=== PATIENT | female | born 1940 | race Caucasian/White ===

== ENCOUNTER 2019-02-28 21:44 | Inpatient (IN) | payer MEDICARE, OTHER ==
[~2019-02-28] VITALS: Ht 162.6 cm; Wt 70.5 kg
--- NOTE | 2019-02-28 21:59 | NUR ---
DURING TRANSPORTATION FROM [place] TO [facility], PT HAD HR IN TH 30's. PT WAS GIVEN ATROPINE, HEART RATE ROME TO THE 60's. 25 mcg FENTANYL AND 4 MG ZOFRAN ADMINISTERED AT [facility].
[2019-02-28] MEDS ORDERED: NO HOME MEDS (22:21)
[2019-02-28] MEDS ORDERED: magnesium hydroxide 30ml (MOM) UD suspension PO PRN (22:30)
[2019-02-28] MEDS ORDERED: magnesium Cl slow-release 64mg tablet PO PRN (22:30)
[2019-02-28] MEDS ORDERED: morphine 2 MG/ML inj. syringe IV PRN (22:30)
[2019-02-28] MEDS ORDERED: potassium CL 10mEq/100ml bag 100 ML IV PRN ×2 (22:30)
[2019-02-28] MEDS ORDERED: mag hydrox/Alum hydrox/simeth 30ml oral suspension PO PRN (22:30)
[2019-02-28] MEDS ORDERED: magnesium 2GM in 50ml NS 50 ML IV PRN (22:30)
[2019-02-28] MEDS ORDERED: potassium Cl 20 mEq SR tablet PO PRN (22:30)
[2019-02-28] MEDS ORDERED: magnesium 4gm in 100ml NS 100 ML IV PRN (22:30)
[2019-02-28] MEDS ORDERED: HYDROcodone/acetaminophen 5mg/325mg tablet PO PRN (22:30)
[2019-02-28] MEDS ORDERED: acetaminophen 325mg tablet PO PRN ×2 (22:30)
[2019-02-28] MEDS ORDERED: ondansetron/PF 4mg/2ml inj IV PRN (22:30)
[2019-02-28] MEDS: normal saline 1000ml 1,000 ML IV SCH (22:46)
[2019-02-28 22:57] LABS: BASOPHILS # (AUTO) 0.1 X10'3 (0-0.2); BASOPHILS % (AUTO) 0.7 % (0-1); EOSINOPHILS % (AUTO) 0.2 % (0-6); HEMATOCRIT 43.2 % (35.0-45.0); HEMOGLOBIN 14.5 g/dl (12.0-16.0); LYMPHOCYTES # (AUTO) 0.8 X10'3 (1.1-4.8); LYMPHOCYTES % (AUTO) 7.8 % (21-51); MEAN CORPUSCULAR HEMOGLOBIN 31.2 PG (27.0-31.0); MEAN CORPUSCULAR HGB CONC 33.6 g/dL (33.0-36.5); MEAN CORPUSCULAR VOLUME 92.9 FL (78-98); MEAN PLATELET VOLUME 7.8 FL (7.4-10.4); MONOCYTES # (AUTO) 0.7 X10'3 (0-0.9); MONOCYTES % (AUTO) 6.9 % (2-12); NEUTROPHILS # (AUTO) 8.4 X10'3 (1.8-7.7); NEUTROPHILS % (AUTO) 84.4 % (42-75); PLATELET COUNT 205 X10'3 (140-440); RED BLOOD COUNT 4.64 X10'6 (4.20-5.60); RED CELL DISTRIBUTION WIDTH 14.1 % (11.5-14.5); WHITE BLOOD COUNT 9.9 X10'3 (4.5-11.0)
--- NOTE | 2019-02-28 22:57 | NUR ---
Patient's son Chris Andrews cld for update, per patient ok to talk with him. I advised him she was stable and resting comfortably at this time.
[2019-02-28 23:20] LABS: ALANINE AMINOTRANSFERASE 615 U/L (12-78); ALBUMIN 3.6 G/DL (3.4-5.0); ALBUMIN/GLOBULIN RATIO 1.1 (1.1-1.5); ALKALINE PHOSPHATASE 164 IU/L (46-116); ANION GAP 6 (8-16); ASPARTATE AMINO TRANSFERASE 1063 U/L (10-37); BILIRUBIN,TOTAL 2.3 MG/DL (0.1-1.0); BLOOD UREA NITROGEN 13 MG/DL (7-18); BUN/CREATININE RATIO 16.5 (6.6-38.0); CALCIUM 9.1 MG/DL (8.5-10.1); CHLORIDE 106 MMOL/L (99-107); CHOL/HDL RATIO 2.6 (0.00-4.99); CHOLESTEROL 167 MG/DL (0-200); CREATININE 0.79 MG/DL (0.40-0.90); GLUCOSE 117 MG/DL (70-104); HDL CHOLESTEROL 64 MG/DL (35-60); LDL CHOLESTEROL 87 MG/DL (50-100); POTASSIUM 3.9 MMOL/L (3.5-5.1); SODIUM 142 MMOL/L (135-145); TOTAL CARBON DIOXIDE 29.7 MMOL/L (24-32); TOTAL PROTEIN 6.8 G/DL (6.4-8.2); TRIGLYCERIDES 51 MG/DL (20-135); eGFR 70 ML/MIN
--- NOTE | 2019-02-28 23:59 | NUR ---
Report received from [employer] Shweta. Patient followed up shortly via josselyn. A&Ox4 and in no distress at this time. Patient up ad viridiana to bed and VS taken.
[2019-03-01 00:05] VITALS: BP 132/84
[2019-03-01 05:15] LABS: BASOPHILS % (AUTO) 0.6 % (0-1); EOSINOPHILS # (AUTO) 0.1 X10'3 (0-0.9); EOSINOPHILS % (AUTO) 0.7 % (0-6); HEMATOCRIT 37.4 % (35.0-45.0); HEMOGLOBIN 12.6 g/dl (12.0-16.0); LYMPHOCYTES # (AUTO) 0.8 X10'3 (1.1-4.8); LYMPHOCYTES % (AUTO) 10.3 % (21-51); MEAN CORPUSCULAR HEMOGLOBIN 31.1 PG (27.0-31.0); MEAN CORPUSCULAR HGB CONC 33.6 g/dL (33.0-36.5); MEAN CORPUSCULAR VOLUME 92.5 FL (78-98); MEAN PLATELET VOLUME 8.3 FL (7.4-10.4); MONOCYTES # (AUTO) 0.6 X10'3 (0-0.9); MONOCYTES % (AUTO) 8.2 % (2-12); NEUTROPHILS # (AUTO) 6.2 X10'3 (1.8-7.7); NEUTROPHILS % (AUTO) 80.2 % (42-75); PLATELET COUNT 157 X10'3 (140-440); RED BLOOD COUNT 4.04 X10'6 (4.20-5.60); RED CELL DISTRIBUTION WIDTH 13.8 % (11.5-14.5); WHITE BLOOD COUNT 7.7 X10'3 (4.5-11.0)
[2019-03-01 05:20] LABS: PARTIAL THROMBOPLASTIN TIME 29 SECONDS (22-32)
[2019-03-01 05:34] LABS: ALANINE AMINOTRANSFERASE 507 U/L (12-78); ALBUMIN 2.7 G/DL (3.4-5.0); ALKALINE PHOSPHATASE 147 IU/L (46-116); ANION GAP 8 (8-16); ASPARTATE AMINO TRANSFERASE 601 U/L (10-37); BILIRUBIN,TOTAL 2.4 MG/DL (0.1-1.0); BLOOD UREA NITROGEN 12 MG/DL (7-18); BUN/CREATININE RATIO 16.9 (6.6-38.0); CALCIUM 8.4 MG/DL (8.5-10.1); CHLORIDE 107 MMOL/L (99-107); CREATININE 0.71 MG/DL (0.40-0.90); GLUCOSE 107 MG/DL (70-104); MAGNESIUM 1.8 MG/DL (1.5-2.4); POTASSIUM 3.6 MMOL/L (3.5-5.1); SODIUM 142 MMOL/L (135-145); TOTAL CARBON DIOXIDE 26.8 MMOL/L (24-32); TOTAL PROTEIN 5.4 G/DL (6.4-8.2); eGFR 79 ML/MIN
[2019-03-01 05:53] LABS: LIPASE 3827 U/L (73-393)
[2019-03-01] MEDS: K and/or MAG REPLACEMENT MC SCH (06:51)
--- NOTE | 2019-03-01 06:51 | NUR ---
Problems reprioritized. Patient report given, questions answered & plan of care reviewed with Dieter Croft.
[2019-03-01] MEDS: enoxaparin 40mg/0.4ml syringe SQ SCH (08:19)
[2019-03-01] MEDS: normal saline 1000ml 1,000 ML IV SCH ×3 (08:20→20:22)
[2019-03-01] MEDS ORDERED: sincalide inj 1.4 MCG in normal saline 50ml IV soln 50 ML IV ONE (10:00)
--- NOTE | 2019-03-01 10:15 | NUR ---
Angelique Sibley, at bedside to take patient to MRI at this time.
[2019-03-01] MEDS: salt irrigation nasal spray 45 ML SPRAY NS PRN ×2 (12:28→16:39)
[2019-03-01 18:00] VITALS: BP 100/58
--- NOTE | 2019-03-01 19:27 | NUR ---
Patient in room [facility]. I have received report from Marcos MATAMOROS and had the opportunity to ask questions and assume patient care. patient is resting.
[2019-03-02] VITALS: BP 107/55
[2019-03-02] MEDS: morphine 2 MG/ML inj. syringe IV PRN (01:06)
[2019-03-02] MEDS: normal saline 1000ml 1,000 ML IV SCH ×4 (04:17→14:17)
--- NOTE | 2019-03-02 06:21 | NUR ---
Problems reprioritized. Patient report given, questions answered & plan of care reviewed with Aman RN.Patient is sleeping and shows no aparent distress
--- NOTE | 2019-03-02 06:40 | NUR ---
Patient in room [facility]. I have received report from SHILOH Card and had the opportunity to ask questions and assume patient care.
[2019-03-02 07:01] LABS: BASOPHILS % (AUTO) 0.5 % (0-1); EOSINOPHILS # (AUTO) 0.1 X10'3 (0-0.9); EOSINOPHILS % (AUTO) 0.6 % (0-6); HEMATOCRIT 35.2 % (35.0-45.0); HEMOGLOBIN 11.8 g/dl (12.0-16.0); LYMPHOCYTES # (AUTO) 0.9 X10'3 (1.1-4.8); LYMPHOCYTES % (AUTO) 9.4 % (21-51); MEAN CORPUSCULAR HEMOGLOBIN 31.4 PG (27.0-31.0); MEAN CORPUSCULAR HGB CONC 33.6 g/dL (33.0-36.5); MEAN CORPUSCULAR VOLUME 93.6 FL (78-98); MEAN PLATELET VOLUME 8.3 FL (7.4-10.4); MONOCYTES # (AUTO) 0.7 X10'3 (0-0.9); MONOCYTES % (AUTO) 7.5 % (2-12); PLATELET COUNT 146 X10'3 (140-440); RED BLOOD COUNT 3.76 X10'6 (4.20-5.60); WHITE BLOOD COUNT 9.7 X10'3 (4.5-11.0)
[2019-03-02 07:13] LABS: ALBUMIN 2.3 G/DL (3.4-5.0); ANION GAP 13 (8-16); BLOOD UREA NITROGEN 13 MG/DL (7-18); CHLORIDE 108 MMOL/L (99-107); CREATININE 0.62 MG/DL (0.40-0.90); GLUCOSE 62 MG/DL (70-104); MAGNESIUM 1.6 MG/DL (1.5-2.4); POTASSIUM 3.3 MMOL/L (3.5-5.1); SODIUM 141 MMOL/L (135-145); TOTAL CARBON DIOXIDE 19.8 MMOL/L (24-32); eGFR > 90 ML/MIN
[2019-03-02] MEDS: enoxaparin 40mg/0.4ml syringe SQ SCH (07:57)
[2019-03-02 08:00] VITALS: BP 119/56
[2019-03-02] MEDS: K and/or MAG REPLACEMENT MC SCH (08:07)
[2019-03-02 08:54] LABS: ALANINE AMINOTRANSFERASE 261 U/L (12-78); ALBUMIN/GLOBULIN RATIO 0.8 (1.1-1.5); ALKALINE PHOSPHATASE 127 IU/L (46-116); ASPARTATE AMINO TRANSFERASE 142 U/L (10-37); BILIRUBIN,DIRECT 0.4 MG/DL (0-0.3); BILIRUBIN,TOTAL 1.1 MG/DL (0.1-1.0); LIPASE 132 U/L (73-393); TOTAL PROTEIN 5.1 G/DL (6.4-8.2)
[2019-03-02] MEDS ORDERED: sincalide inj 1.4 MCG in normal saline 50ml IV soln 50 ML IV ONE (10:00)
[2019-03-02 11:00] VITALS: BP 122/56
[2019-03-02] MEDS: piperacillin/tazo 3.375gm/50ml 50 ML IV SCH ×2 (11:34→16:06)
[2019-03-02] MEDS: potassium Cl 20 mEq SR tablet PO PRN ×2 (15:09→19:14)
[2019-03-02 18:00] VITALS: BP 121/47
--- NOTE | 2019-03-02 18:14 | NUR ---
Problems reprioritized. Patient report given, questions answered & plan of care reviewed with SHILOH Sutton.
[2019-03-02] MEDS: lactobacillus rhamnosus 10,000 MMU CELLS/CAPSULE PO SCH (20:00)
[2019-03-02 23:55] VITALS: BP 120/49
[2019-03-03] MEDS: piperacillin/tazo 3.375gm/50ml 50 ML IV SCH ×3 (00:34→09:00)
[2019-03-03] MEDS: morphine 2 MG/ML inj. syringe IV PRN (01:13)
[2019-03-03 04:26] LABS: BASOPHILS % (AUTO) 0.7 % (0-1); EOSINOPHILS # (AUTO) 0.2 X10'3 (0-0.9); HEMOGLOBIN 13.1 g/dl (12.0-16.0); LYMPHOCYTES # (AUTO) 1.6 X10'3 (1.1-4.8); LYMPHOCYTES % (AUTO) 23.4 % (21-51); MEAN CORPUSCULAR HEMOGLOBIN 31.2 PG (27.0-31.0); MEAN CORPUSCULAR HGB CONC 33.6 g/dL (33.0-36.5); MEAN CORPUSCULAR VOLUME 92.7 FL (78-98); MEAN PLATELET VOLUME 8.2 FL (7.4-10.4); MONOCYTES # (AUTO) 0.6 X10'3 (0-0.9); MONOCYTES % (AUTO) 9.6 % (2-12); NEUTROPHILS # (AUTO) 4.2 X10'3 (1.8-7.7); NEUTROPHILS % (AUTO) 63.3 % (42-75); PLATELET COUNT 196 X10'3 (140-440); RED BLOOD COUNT 4.21 X10'6 (4.20-5.60); RED CELL DISTRIBUTION WIDTH 13.9 % (11.5-14.5); WHITE BLOOD COUNT 6.6 X10'3 (4.5-11.0)
[2019-03-03 04:33] LABS: ALANINE AMINOTRANSFERASE 204 U/L (12-78); ALBUMIN 2.6 G/DL (3.4-5.0); ALBUMIN/GLOBULIN RATIO 0.8 (1.1-1.5); ALKALINE PHOSPHATASE 134 IU/L (46-116); ANION GAP 9 (8-16); ASPARTATE AMINO TRANSFERASE 66 U/L (10-37); BILIRUBIN,TOTAL 0.9 MG/DL (0.1-1.0); BLOOD UREA NITROGEN 12 MG/DL (7-18); CALCIUM 8.5 MG/DL (8.5-10.1); CHLORIDE 108 MMOL/L (99-107); GLUCOSE 82 MG/DL (70-104); MAGNESIUM 1.8 MG/DL (1.5-2.4); SODIUM 141 MMOL/L (135-145); TOTAL CARBON DIOXIDE 24.1 MMOL/L (24-32); TOTAL PROTEIN 5.8 G/DL (6.4-8.2); eGFR 69 ML/MIN
--- NOTE | 2019-03-03 07:04 | NUR ---
Patient in room [facility] 344. I have received report from SHILOH Garrison and had the opportunity to ask questions and assume patient care.
[2019-03-03 07:13] VITALS: BP 129/71
[2019-03-03] MEDS: K and/or MAG REPLACEMENT MC SCH (08:00)
[2019-03-03] MEDS: lactobacillus rhamnosus 10,000 MMU CELLS/CAPSULE PO SCH (08:22)
[2019-03-03] MEDS: enoxaparin 40mg/0.4ml syringe SQ SCH (08:23)
[2019-03-03] MEDS: normal saline 1000ml 1,000 ML IV SCH (09:07)
[2019-03-03] MEDS ORDERED: NYSPWD TP (10:27)
[2019-03-03] MEDS ORDERED: AMOX-580 PO (10:27)
--- NOTE | 2019-03-03 16:45 | NUR ---
PATIENT STABLE AND APPROPRIATE FOR DISCHARGE, IV TAKEN OUT, EDUCATION GIVEN, MEDS E-SCRIPTED TO PREFERRED PHARMACY, ALL BELONGINGS SENT WITH PATIENT, PATIENT TAKEN TO LOBBY IN A WHEELCHAIR TO AN AWAITING CAR WHERE WILL TAKE HOME
== END 2019-03-03 16:45 | disposition home or self-care (01) | DRG 871 ==
LOC: ER 21:44 → ED HOLD 22:33 → SUR 3N 23:59
PROVIDERS: ADMIT Hospitalist; ATTEND Family Medicine
PROC: CF1C1ZZ Planar Nuclear Medicine Imaging of Hepatobiliary System, All using Technetium 99m (Tc-99m) (ICD-10-PCS; principal; 2019-03-02)
DX: A41.9 Sepsis, unspecified organism (principal); K85.90 Acute pancreatitis without necrosis or infection, unspecified; Y92.89 Other specified places as the place of occurrence of the external cause; J30.9 Allergic rhinitis, unspecified; R74.0 Nonspecific elevation of levels of transaminase and lactic acid dehydrogenase [LDH]; J34.2 Deviated nasal septum; L89.159 Pressure ulcer of sacral region, unspecified stage; M99.00 Segmental and somatic dysfunction of head region; R32 Unspecified urinary incontinence; R09.81 Nasal congestion; R00.1 Bradycardia, unspecified
CPT/HCPCS: 36415; 74181; 78227; 80048; 80053; 80061; 80076; 83605; 83690; 83735; 84145; 85025; 85610; 85730; 87040; 87070; 87075; 87077; 87081; 87102; 87186; 96374; 99285; A9537; G0378; J1650; J2270; J2543; J2805; J7030

== ENCOUNTER 2019-03-11 12:16 | Inpatient (IN) | payer MEDICARE, OTHER ==
[~2019-03-11] VITALS: Ht 162.6 cm; Wt 72.7 kg
[~2019-03-11 12:16] MED LIST: AMOX-580 PO; NYSPWD TP
[2019-03-11 14:15] LABS: BASOPHILS # (AUTO) 0.1 X10'3 (0-0.2); BASOPHILS % (AUTO) 0.8 % (0-1); EOSINOPHILS # (AUTO) 0.1 X10'3 (0-0.9); EOSINOPHILS % (AUTO) 0.9 % (0-6); HEMATOCRIT 38.9 % (35.0-45.0); HEMOGLOBIN 13.1 g/dl (12.0-16.0); LYMPHOCYTES # (AUTO) 1.2 X10'3 (1.1-4.8); LYMPHOCYTES % (AUTO) 10.7 % (21-51); MEAN CORPUSCULAR HGB CONC 33.7 g/dL (33.0-36.5); MEAN CORPUSCULAR VOLUME 92.1 FL (78-98); MEAN PLATELET VOLUME 7.1 FL (7.4-10.4); MONOCYTES # (AUTO) 0.7 X10'3 (0-0.9); MONOCYTES % (AUTO) 6.1 % (2-12); NEUTROPHILS # (AUTO) 9.2 X10'3 (1.8-7.7); NEUTROPHILS % (AUTO) 81.5 % (42-75); PLATELET COUNT 282 X10'3 (140-440); RED BLOOD COUNT 4.22 X10'6 (4.20-5.60); WHITE BLOOD COUNT 11.3 X10'3 (4.5-11.0)
[2019-03-11 14:32] LABS: ALANINE AMINOTRANSFERASE 117 U/L (12-78); ALBUMIN 3.3 G/DL (3.4-5.0); ALBUMIN/GLOBULIN RATIO 1.2 (1.1-1.5); ALKALINE PHOSPHATASE 150 IU/L (46-116); ANION GAP 7 (8-16); ASPARTATE AMINO TRANSFERASE 109 U/L (10-37); BILIRUBIN,TOTAL 0.7 MG/DL (0.1-1.0); BLOOD UREA NITROGEN 12 MG/DL (7-18); BUN/CREATININE RATIO 17.6 (6.6-38.0); CALCIUM 9.2 MG/DL (8.5-10.1); CHLORIDE 107 MMOL/L (99-107); CREATININE 0.68 MG/DL (0.40-0.90); GLUCOSE 101 MG/DL (70-104); POTASSIUM 3.7 MMOL/L (3.5-5.1); SODIUM 143 MMOL/L (135-145); TOTAL CARBON DIOXIDE 29.5 MMOL/L (24-32); TOTAL PROTEIN 6.1 G/DL (6.4-8.2); eGFR 83 ML/MIN
[2019-03-11 14:49] LABS: CLARITY,URINE CLEAR (Clear); COLOR,URINE YELLOW (Yellow); GLUCOSE, URINE NEGATIVE (Neg); KETONES,URINE NEGATIVE (Neg); LEUKOCYTE ESTERASE ,URINE NEGATIVE (Neg); NITRITES, URINE NEGATIVE (Neg); OCCULT BLOOD,URINE NEGATIVE (Neg); PH,URINE 7.5 (4.8-8.0); PROTEIN,URINE NEGATIVE (Neg); UROBILINOGEN,URINE 0.2 E.U/dL (0.2-1.0)
[2019-03-11 14:55] LABS: LIPASE 27557 U/L (73-393)
[2019-03-11 14:55] LABS: UA COLLECTION TYPE CLN CATCH MIDSTREAM
[2019-03-11] MEDS ORDERED: morphine 4 MG/ML inj SYRINge IV ONE (15:10)
[2019-03-11] MEDS ORDERED: normal saline 1000ML IV soln IV ONE (15:10)
[2019-03-11] MEDS ORDERED: normal saline 1000ml 1,000 ML IV SCH (15:51)
[2019-03-11] MEDS ORDERED: ondansetron/PF 4mg/2ml inj IV PRN (15:55)
[2019-03-11] MEDS ORDERED: acetaminophen 325mg tablet PO PRN ×2 (15:55)
[2019-03-11] MEDS ORDERED: diphenhydrAMINE 25mg capsule PO PRN (15:55)
[2019-03-11] MEDS ORDERED: morphine 2 MG/ML inj. syringe IV PRN ×2 (15:55)
[2019-03-11] MEDS ORDERED: magnesium Cl slow-release 64mg tablet PO PRN (15:55)
[2019-03-11] MEDS ORDERED: potassium CL 10mEq/100ml bag 100 ML IV PRN ×2 (15:55)
[2019-03-11] MEDS ORDERED: mag hydrox/Alum hydrox/simeth 30ml oral suspension PO PRN (15:55)
[2019-03-11] MEDS ORDERED: HYDROcodone/acetaminophen 10/325mg tab PO PRN (15:55)
[2019-03-11] MEDS ORDERED: diphenhydrAMINE 50 mg/ml inj IV PRN (15:55)
[2019-03-11] MEDS ORDERED: magnesium hydroxide 30ml (MOM) UD suspension PO PRN (15:55)
[2019-03-11] MEDS ORDERED: magnesium 2GM in 50ml NS 50 ML IV PRN (15:55)
[2019-03-11] MEDS ORDERED: magnesium 4gm in 100ml NS 100 ML IV PRN (15:55)
[2019-03-11] MEDS ORDERED: potassium Cl 20 mEq SR tablet PO PRN ×2 (15:55)
[2019-03-11] MEDS ORDERED: acetaminophen 650mg rectal suppository RC PRN (15:55)
[2019-03-11] MEDS ORDERED: bisacodyl 10mg suppository rectal RC PRN (15:55)
[2019-03-11 16:34] LABS: HEMOGLOBIN A1C 5.7 % (4.5-6.2)
[2019-03-11] MEDS ORDERED: MULT-933 PO (16:43)
--- NOTE | 2019-03-11 17:32 | NUR ---
LORENA RN GIVING REPORT; I NEVER RECEIVED REPORT ON PATIENTAND DID NOT ASSUME CARE
--- NOTE | 2019-03-11 17:35 | NUR ---
Received report from RN in ER. awaiting patient.
[2019-03-11 17:55] VITALS: BP 141/63
--- NOTE | 2019-03-11 17:55 | NUR ---
Patient arrived to floor. VSS. no complaints. Dr Ferrer at bedside. Patient made comfortable in bed. Will report off to night manager RN.
[2019-03-11] MEDS: dextrose 5%-normal saline 1,000 ML IV SCH (17:56)
--- NOTE | 2019-03-11 18:40 | NUR ---
Problems reprioritized. Patient report given, questions answered & plan of care reviewed with SHILOH Alvarenga.
--- NOTE | 2019-03-11 18:40 | NUR ---
Received report from SHILOH Vang. Patient in room [facility] 347B and had the opportunity to ask questions and assume patient care.
[2019-03-11] MEDS: K and/or MAG REPLACEMENT MC SCH (19:33)
[2019-03-11 20:00] VITALS: BP 139/64
[2019-03-11] MEDS: piperacillin/tazo 3.375gm/50ml 50 ML IV SCH (20:15)
[2019-03-12] VITALS (19 sets, daily range): BP systolic 119–158; BP diastolic 52–91
[2019-03-12] MEDS: piperacillin/tazo 3.375gm/50ml 50 ML IV SCH ×3 (00:15→16:27)
[2019-03-12] MEDS: dextrose 5%-normal saline 1,000 ML IV SCH ×2 (04:37→12:01)
--- NOTE | 2019-03-12 06:18 | NUR ---
Problems reprioritized. Patient report given, questions answered & plan of care reviewed with SHILOH Mojica.
[2019-03-12 06:25] LABS: BASOPHILS # (AUTO) 0.1 X10'3 (0-0.2); BASOPHILS % (AUTO) 1.4 % (0-1); EOSINOPHILS # (AUTO) 0.3 X10'3 (0-0.9); EOSINOPHILS % (AUTO) 4.5 % (0-6); HEMATOCRIT 37.5 % (35.0-45.0); HEMOGLOBIN 12.7 g/dl (12.0-16.0); LYMPHOCYTES # (AUTO) 1.8 X10'3 (1.1-4.8); LYMPHOCYTES % (AUTO) 30.8 % (21-51); MEAN CORPUSCULAR HEMOGLOBIN 31.2 PG (27.0-31.0); MEAN CORPUSCULAR HGB CONC 33.7 g/dL (33.0-36.5); MEAN CORPUSCULAR VOLUME 92.6 FL (78-98); MEAN PLATELET VOLUME 7.6 FL (7.4-10.4); MONOCYTES # (AUTO) 0.4 X10'3 (0-0.9); MONOCYTES % (AUTO) 7.5 % (2-12); NEUTROPHILS # (AUTO) 3.2 X10'3 (1.8-7.7); NEUTROPHILS % (AUTO) 55.8 % (42-75); PLATELET COUNT 259 X10'3 (140-440); RED BLOOD COUNT 4.06 X10'6 (4.20-5.60); RED CELL DISTRIBUTION WIDTH 14.1 % (11.5-14.5); WHITE BLOOD COUNT 5.8 X10'3 (4.5-11.0)
[2019-03-12 07:14] LABS: ALBUMIN 2.9 G/DL (3.4-5.0); ALBUMIN/GLOBULIN RATIO 1.1 (1.1-1.5); BILIRUBIN,TOTAL 0.6 MG/DL (0.1-1.0); GLUCOSE 104 MG/DL (70-104); HDL CHOLESTEROL 40 MG/DL (35-60); MAGNESIUM 1.8 MG/DL (1.5-2.4); POTASSIUM 3.7 MMOL/L (3.5-5.1); TOTAL PROTEIN 5.6 G/DL (6.4-8.2)
[2019-03-12 07:45] LABS: ALANINE AMINOTRANSFERASE 86 U/L (12-78); ALKALINE PHOSPHATASE 130 IU/L (46-116); ANION GAP 11 (8-16); ASPARTATE AMINO TRANSFERASE 40 U/L (10-37); BLOOD UREA NITROGEN 8 MG/DL (7-18); BUN/CREATININE RATIO 10.7 (6.6-38.0); CALCIUM 8.6 MG/DL (8.5-10.1); CHLORIDE 109 MMOL/L (99-107); CHOL/HDL RATIO 3.7 (0.00-4.99); CHOLESTEROL 148 MG/DL (0-200); CREATININE 0.75 MG/DL (0.40-0.90); LDL CHOLESTEROL 92 MG/DL (50-100); SODIUM 144 MMOL/L (135-145); TOTAL CARBON DIOXIDE 24.3 MMOL/L (24-32); TRIGLYCERIDES 88 MG/DL (20-135); eGFR 74 ML/MIN
[2019-03-12] MEDS: K and/or MAG REPLACEMENT MC SCH ×2 (07:58→19:50)
[2019-03-12 08:01] LABS: LIPASE 5297 U/L (73-393)
[2019-03-12] MEDS ORDERED: glucagon, human recombinant 1mg kit ONE (12:24)
[2019-03-12] MEDS ORDERED: iohexol 300 MG/1 ML 50ml polymer ONE (12:24)
[2019-03-12] MEDS ORDERED: LIDOcaine Viscous 15ml cup ONE (12:24)
[2019-03-12] MEDS ORDERED: MIDAZolam 5mg/5ml vial ONE (12:24)
[2019-03-12] MEDS ORDERED: fentaNYL/PF 50MCG/1 ML 2ML syringe ONE (12:24)
--- NOTE | 2019-03-12 12:53 | NUR ---
WOUND PICTURES TAKEN AND PLACED IN CHART.
--- NOTE | 2019-03-12 14:48 | NUR ---
Patient back to room from GI lab. Patient alert oriented and in no apparent distress at this time. Patient sitting on bedside commode due to feeling the need to have a BM. Will reassess patient and start post-procedure vitals.
[2019-03-12] MEDS: HYDROcodone/acetaminophen 5mg/325mg tablet PO PRN (17:10)
--- NOTE | 2019-03-12 17:14 | NUR ---
Initial: Pt admit with recurrent pancreatitis with transaminitis. Pt with low Willam of 12, documented with red-nonblanchable area on coccyx per RN notes. Pt with EtOH hx however pt reports no EtOH for the past 8 months per H&P. Attempted visit with pt at bedside for pancreatitis nutrition therapy education however pt unavailable. Lipase [place] 5297 from 19177. Pt currently NPO, receiving dext/NS. LBM 03/11. Will continue to follow and provide education prior to discharge. Recommendations: 1) Diet advancement to low fat as medically indicated 2) Bowel care PRN 3) Pancreatitis nutrition therapy education prior to discharge 4) Wt per rx Addendum: 03/12/19 at [address] Amended: Links added.
--- NOTE | 2019-03-12 18:19 | NUR ---
Problems reprioritized. Patient report given, questions answered & plan of care reviewed with Colette MATAMOROS.
[2019-03-12] MEDS: lactobacillus rhamnosus 10,000 MMU CELLS/CAPSULE PO SCH (20:31)
[2019-03-13] VITALS: BP 168/72
[2019-03-13] MEDS: dextrose 5%-normal saline 1,000 ML IV SCH ×2 (00:07→07:55)
[2019-03-13] MEDS: piperacillin/tazo 3.375gm/50ml 50 ML IV SCH ×2 (00:07→08:10)
[2019-03-13 05:12] LABS: BASOPHILS # (AUTO) 0.1 X10'3 (0-0.2); EOSINOPHILS # (AUTO) 0.2 X10'3 (0-0.9); HEMATOCRIT 36.9 % (35.0-45.0); MONOCYTES # (AUTO) 0.5 X10'3 (0-0.9)
[2019-03-13 05:18] LABS: EOSINOPHILS % (AUTO) 3.8 % (0-6); HEMOGLOBIN 12.4 g/dl (12.0-16.0); LYMPHOCYTES # (AUTO) 1.3 X10'3 (1.1-4.8); LYMPHOCYTES % (AUTO) 23.2 % (21-51); MEAN CORPUSCULAR HGB CONC 33.6 g/dL (33.0-36.5); MEAN CORPUSCULAR VOLUME 92.3 FL (78-98); MEAN PLATELET VOLUME 7.8 FL (7.4-10.4); MONOCYTES % (AUTO) 9.8 % (2-12); NEUTROPHILS # (AUTO) 3.3 X10'3 (1.8-7.7); NEUTROPHILS % (AUTO) 61.2 % (42-75); PLATELET COUNT 213 X10'3 (140-440); WHITE BLOOD COUNT 5.4 X10'3 (4.5-11.0)
[2019-03-13 05:19] LABS: ALANINE AMINOTRANSFERASE 74 U/L (12-78); ALBUMIN 2.7 G/DL (3.4-5.0); ALKALINE PHOSPHATASE 120 IU/L (46-116); ANION GAP 5 (8-16); ASPARTATE AMINO TRANSFERASE 24 U/L (10-37); BILIRUBIN,TOTAL 0.5 MG/DL (0.1-1.0); BLOOD UREA NITROGEN 5 MG/DL (7-18); BUN/CREATININE RATIO 6.8 (6.6-38.0); CALCIUM 8.2 MG/DL (8.5-10.1); CHLORIDE 110 MMOL/L (99-107); CREATININE 0.74 MG/DL (0.40-0.90); GLUCOSE 115 MG/DL (70-104); LIPASE 420 U/L (73-393); MAGNESIUM 1.8 MG/DL (1.5-2.4); PHOSPHORUS 3.4 MG/DL (2.3-4.5); POTASSIUM 3.1 MMOL/L (3.5-5.1); SODIUM 143 MMOL/L (135-145); TOTAL CARBON DIOXIDE 28.4 MMOL/L (24-32); TOTAL PROTEIN 5.4 G/DL (6.4-8.2); eGFR 76 ML/MIN
--- NOTE | 2019-03-13 06:30 | NUR ---
Problems reprioritized. Patient report given, questions answered & plan of care reviewed with SHILOH Che.
--- NOTE | 2019-03-13 06:35 | NUR ---
Patient in room [facility] 347. I have received report from SHILOH Alvarenga and had the opportunity to ask questions and assume patient care.
[2019-03-13 07:00] VITALS: BP 119/67
[2019-03-13 07:30] VITALS: BP 125/50
[2019-03-13] MEDS: K and/or MAG REPLACEMENT MC SCH (08:00)
[2019-03-13] MEDS: lactobacillus rhamnosus 10,000 MMU CELLS/CAPSULE PO SCH (08:07)
[2019-03-13] MEDS: HYDROcodone/acetaminophen 5mg/325mg tablet PO PRN (08:09)
[2019-03-13] MEDS ORDERED: LACT1CAP26 PO (10:52)
[2019-03-13] MEDS ORDERED: AMOX-419 PO (10:52)
[2019-03-13 11:00] VITALS: BP 114/57
[2019-03-13] MEDS ORDERED: POTA10TA36 PO (11:18)
--- NOTE | 2019-03-13 11:30 | NUR ---
Per Dr. Ferrer we are going to trial patient on full liquid diet and then have her discharged if tolerated okay.
[2019-03-13] MEDS ORDERED: potassium Cl 20 mEq SR tablet PO STA (11:33)
--- NOTE | 2019-03-13 13:45 | NUR ---
Patient complaining of pain 6/10 after having lunch. MD notified. Okay to continue with discharge. Per MD patient is to advance diet very slowly to avoid too much pain. Patient aware.
--- NOTE | 2019-03-13 14:35 | NUR ---
Patient discharged home via and taken from unit via wheelchair with x1 staff. Patient alert and oriented at time of discharge. Patient complaining of slight abdominal pain after having a full liquid tray for lunch. MD aware. Patient PIV removed with cannula intact. Tele monitor removed and tele chambers notified. Discharge instructions given to patient, time was given for questions and answers, patient stated an understanding of instruction. Patient K was 3.1 this morning 20 mEq of K-dur given prior to MD rounding. MD ordered a one time dose of 40 mEq K-dur and this was also given to the patient. Patient was discharged with a prescription for potassium to be given at home for a few days. The three medications were sent into [facility] in [place] per patient request. Pictures of patients wound on buttock was taken and placed in the chart.
--- NOTE | 2019-03-13 14:51 | NUR ---
PRESSURE ULCER EDUCATION: DEFINITION: A pressure ulcer is an area of skin that breaks down when you stay in one position too long. The constant pressure against the skin reduces the blood flow to that area and the affected tissue dies. CAUSES: "Being bedridden or in a wheelchair "Fragile skin "Having a chronic condition, such as diabetes or vascular disease "Inability to move certain parts of your body without assistance "Older age "Incontinence of urine or stool SYMPTOMS: "A reddened area that DOES NOT turn white when pressed on - this can be the beginning of a pressure ulcer "A blister, deep sore or a crater - these can be advanced pressure ulcers FIRST AID: "Relieve the pressure on this area "Keep the area clean and dry "Call your primary doctor if you see any of the above symptoms "DO NOT massage the area "DO NOT use a donut shaped or ring shaped pillow- these actually interfere with the blood flow and cause complications PREVENTION: "Check for pressure ulcers everyday "Change position at least every two hours to relieve pressure "Use items that help relieve pressure- pillows, sheepskin, foam padding, and powders. "Keep skin clean and dry "Eat healthy well balanced meals "Exercise daily IF YOU SEE ANY OF THESE SYMPTOMS WHILE IN THE HOSPITAL - TELL YOUR NURSE IMMEDIATELY. IF YOU SEE ANY OF THESE SYMPTOMS WHILE AT HOME OR HAVE ANY QUESTIONS OR CONCERNS ABOUT PRESSURE ULCERS - CALL YOUR PRIMARY DOCTOR IMMEDIATELY. Addendum: 03/13/19 at 1451 by Jasmyne Sterling RN Amended: Links added.
--- NOTE | 2019-03-13 15:15 | NUR ---
F/u: Pt discharged prior to RD being available for bedside visit. Written protein and pancreatitis nutrition therapy educations with RD contact information mailed to home address found in EMR. Addendum: 03/13/19 at [address] Amended: Links added.
== END 2019-03-13 14:35 | disposition home or self-care (01) | DRG 438 ==
LOC: ER 12:17 → ED HOLD 15:51 → SUR 3N 17:49
PROVIDERS: ADMIT Family Medicine; ATTEND Family Medicine
PROC: 0F798DZ Dilation of Common Bile Duct with Intraluminal Device, Via Natural or Artificial Opening Endoscopic (ICD-10-PCS; principal; 2019-03-12)
DX: K85.90 Acute pancreatitis without necrosis or infection, unspecified (principal); K83.1 Obstruction of bile duct; K86.1 Other chronic pancreatitis; K83.8 Other specified diseases of biliary tract; R19.7 Diarrhea, unspecified; R74.0 Nonspecific elevation of levels of transaminase and lactic acid dehydrogenase [LDH]; Z66 Do not resuscitate; Z83.2 Family history of diseases of the blood and blood-forming organs and certain disorders involving the immune mechanism; Z87.891 Personal history of nicotine dependence; Z98.42 Cataract extraction status, left eye; Z98.41 Cataract extraction status, right eye
CPT/HCPCS: 36415; 43262; 43264; 43274; 80053; 80061; 81003; 83036; 83690; 83735; 84100; 84145; 85025; 87081; 96374; 99152; 99153; 99285; A4620; C1769; G0378; J1610; J2250; J2270; J2543; J3010; J7040; J7042; Q9967

== ENCOUNTER 2019-04-04 09:39 | Day surgery (SDC) | payer MEDICARE, OTHER ==
[~2019-04-04] VITALS: Ht 154.9 cm; Wt 85.9 kg
[2019-04-04] VITALS (8 sets, daily range): BP systolic 101–137; BP diastolic 52–78
[~2019-04-04 09:39] MED LIST changes: +AMOX-419 PO; -AMOX-580 PO; +LACT1CAP26 PO; +MULT-933 PO; -NYSPWD TP; +POTA10TA36 PO
[2019-04-04] MEDS ORDERED: NO HOME MEDS (10:04)
[2019-04-04] MEDS ORDERED: iohexol 300 MG/1 ML 50ml polymer ONE (10:15)
[2019-04-04] MEDS ORDERED: MIDAZolam 5mg/5ml vial ONE (10:15)
[2019-04-04] MEDS ORDERED: glucagon, human recombinant 1mg kit ONE (10:15)
[2019-04-04] MEDS ORDERED: fentaNYL/PF 50MCG/1 ML 2ML syringe ONE (10:15)
[2019-04-04] MEDS ORDERED: LIDOcaine Viscous 15ml cup ONE (10:15)
[2019-04-04] MEDS ORDERED: levoFLOXACIN-Levaquin 500mg/D5 100 ML IV ONE (10:57)
== END 2019-04-04 12:10 | disposition home or self-care (01) ==
LOC: GI LAB 09:39
PROVIDERS: ATTEND Internal Medicine Gastroenterology
DX: Z46.59 Encounter for fitting and adjustment of other gastrointestinal appliance and device (principal); K83.8 Other specified diseases of biliary tract
CPT/HCPCS: 43275; C1769; C1773; G0500; J1610; J1956; J2250; J3010; J7040; Q9967; 43262; 99152; 99153; A4620

== ENCOUNTER 2019-11-20 06:58 | Day surgery (SDC) | payer MEDICARE, OTHER ==
[2019-11-13 11:17] LABS: BASOPHILS % (AUTO) 0.3 % (0-1); EOSINOPHILS # (AUTO) 0.1 X10'3 (0-0.9); EOSINOPHILS % (AUTO) 1.6 % (0-6); LYMPHOCYTES # (AUTO) 1.8 X10'3 (1.1-4.8); LYMPHOCYTES % (AUTO) 26.7 % (21-51); MEAN CORPUSCULAR HEMOGLOBIN 30.8 PG (27.0-31.0); MEAN CORPUSCULAR HGB CONC 33.3 g/dL (33.0-36.5); MEAN CORPUSCULAR VOLUME 92.7 FL (78-98); MEAN PLATELET VOLUME 7.2 FL (7.4-10.4); MONOCYTES # (AUTO) 0.5 X10'3 (0-0.9); MONOCYTES % (AUTO) 7.1 % (2-12); NEUTROPHILS # (AUTO) 4.3 X10'3 (1.8-7.7); NEUTROPHILS % (AUTO) 64.3 % (42-75); PRE OP HEMATOCRIT 40.4 % (35.0-45.0); PRE OP HEMOGLOBIN 13.4 g/dL (12.0-16.0); PRE OP PLATELET COUNT 187 X10'3 (140-440); RED BLOOD COUNT 4.36 X10'6 (4.20-5.60); RED CELL DISTRIBUTION WIDTH 14.2 % (11.5-14.5)
[2019-11-13 11:34] LABS: ALANINE AMINOTRANSFERASE 22 U/L (12-78); ALBUMIN 3.5 G/DL (3.4-5.0); ALBUMIN/GLOBULIN RATIO 1.3 (1.1-1.5); ALKALINE PHOSPHATASE 71 IU/L (46-116); ANION GAP 5 (8-16); ASPARTATE AMINO TRANSFERASE 17 U/L (10-37); BILIRUBIN,TOTAL 0.5 MG/DL (0.1-1.0); BLOOD UREA NITROGEN 23 MG/DL (7-18); CALCIUM 8.8 MG/DL (8.5-10.1); CHLORIDE 107 MMOL/L (99-107); CREATININE 0.82 MG/DL (0.40-0.90); GLUCOSE 93 MG/DL (70-104); POTASSIUM 3.9 MMOL/L (3.5-5.1); SODIUM 141 MMOL/L (135-145); TOTAL CARBON DIOXIDE 28.8 MMOL/L (24-32); TOTAL PROTEIN 6.3 G/DL (6.4-8.2); eGFR 67 ML/MIN
[2019-11-20] VITALS (13 sets, daily range): BP systolic 113–149; BP diastolic 59–80
[~2019-11-20] VITALS: Ht 162.6 cm; Wt 66.2 kg
[~2019-11-20 06:58] MED LIST changes: -AMOX-419 PO; +BUPIVAcaine/PF 2.5 mg/ml (0.25%) 30ml vial ONE; +INDOCYANINE GREEN 25 MG/10 ML VIAL IV ONE; -LACT1CAP26 PO; +LACT1CAP65 PO; +LIDOcaine 1% 30ml preserv. free vial ONE; +MULT-1085 PO; -MULT-933 PO; -POTA10TA36 PO; +ceFAZolin 2gm in dextrose, iso 50 ML IV ONE; +famotidine 20mg tablet PO ONE; +ringers solution, lacted 1,000 ML IV SCH
[2019-11-20] MEDS ORDERED: sevoflurane 250ml liquid IH ONE (08:57)
[2019-11-20] MEDS ORDERED: fentaNYL/PF 50MCG/1 ML 2ML syringe ONE ×2 (09:03→11:36)
[2019-11-20] MEDS ORDERED: ringers solution, lacted 1,000 ML IV SCH (09:36)
[2019-11-20] MEDS ORDERED: morphine 2 MG/ML inj. syringe IV PRN (09:40)
[2019-11-20] MEDS ORDERED: ondansetron/PF 4mg/2ml inj IV PRN (09:40)
[2019-11-20] MEDS ORDERED: HYDROmorphone inj. 0.5 MG/0.5 ML DISP.SYRIN IV PRN ×2 (09:40)
[2019-11-20] MEDS ORDERED: glycopyrrolate 0.2mg/ml inj ONE (09:44)
[2019-11-20] MEDS ORDERED: dexamethasone sod phosphate 4mg/ml inj. ONE (09:44)
[2019-11-20] MEDS ORDERED: rocuronium 10mg/ml inj IV ONE ×2 (09:44→12:12)
[2019-11-20] MEDS ORDERED: propofol inj 20 ML IV ONE (09:44)
[2019-11-20] MEDS ORDERED: ondansetron/PF 4mg/2ml inj ONE (09:44)
[2019-11-20] MEDS ORDERED: LIDOcaine 2% (20mg/ml) 5ml vial ONE (09:44)
[2019-11-20] MEDS ORDERED: neostigmine methylsulfate 1 MG/ML 10ml vial ONE (09:44)
--- NOTE | 2019-11-20 10:01 | NUR ---
Received from OR via josselyn , accompanied by Anesthesiologist Lidya and report given by Anesthesiolgist. Pt s/p shankar sanchez with four clean dry intact bandaids on the anterior ABD. 20 GA left wrist with NS running at 100 mls/hour. 10 ltr via mask with 99% SpO2. VSS. Denies pain. Addendum: 11/20/19 at 1018 by Indio Koch RN, RN Amended: Links added.
[2019-11-20] MEDS ORDERED: HYDROcodone/acetaminophen 5mg/325mg tablet PO PRN (10:20)
[2019-11-20] MEDS ORDERED: acetaminophen 1,000mg/100ml IV 100 ML IV ONE (10:30)
--- NOTE | 2019-11-20 12:41 | NUR ---
Report called to receiving nurse. Transferred via WHEELCHAIR WITH CLOTHES ON AND OTHER Belongings . Special Issues communicated to receiving [facility] nurse.VSS. DRESSING TO ABDOMEN ARE CDI. VSS. Addendum: 11/20/19 at 1303 by Indio Koch RN, RN Amended: Links added.
== END 2019-11-20 12:41 | disposition home or self-care (01) ==
LOC: PAS 06:58
PROVIDERS: ATTEND Surgery
DX: K81.1 Chronic cholecystitis (principal); Z98.890 Other specified postprocedural states; Z91.09 Other allergy status, other than to drugs and biological substances; Z87.891 Personal history of nicotine dependence; Z88.8 Allergy status to other drugs, medicaments and biological substances; Z87.01 Personal history of pneumonia (recurrent); Z79.899 Other long term (current) drug therapy; Z11.59 Encounter for screening for other viral diseases; Z82.49 Family history of ischemic heart disease and other diseases of the circulatory system
CPT/HCPCS: 36415; 47563; 80053; 82948; 85025; 87635; 93005; J0131; J1100; J2001; J2405; J2704; J2710; J3010; J3490; J7120; A4215; A4618; A7000